=== PATIENT | female | born 2000 | race Caucasian/White ===

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

== ENCOUNTER 2021-07-06 12:59 | Emergency (ER) | payer BC ==
--- NOTE | 2021-07-06 13:22 | EDM.PDOC ---
ED HPI GENERAL MEDICAL PROBLEM - General Chief Complaint: Lower Extremity Injury/Pain Stated Complaint: RIGHT FOOT PAIN Time Seen by Provider: 07/06/21 13:22 Source of Information: Reports: Patient History Limitations: Reports: No Limitations - History of Present Illness INITIAL COMMENTS - FREE TEXT/NARRATIVE: Tosin, 21-year-old female, sustained injury to her right ankle last evening while attending a wedding dance. Individual stepped on her foot to which she was wearing high shoes causing her to twist and fall. Has had persistent pain that worsens with the attempt to drive today. Swelling remains stable from last night. States ankle history when in sports in high school. Denies any other concerns or injuries occurring. Onset Date: 07/05/21 Duration: Hour(s): Location: Reports: Lower Extremity, Right Quality: Reports: Ache, Sharp Severity: Moderate Improves with: Reports: None Worsens with: Reports: Movement Context: Reports: Activity, Trauma Right Foot Pain Score (Numeric/FACES): 5 - Related Data Allergies Allergy/AdvReac Type Severity Reaction Status Date / Time No Known Drug Allergies Allergy Cannot Verified 11/08/17 11:43 Remember Home Meds: Home Meds . 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 ED EXAM, GENERAL - Physical Exam Exam: See Below Free Text/Narrative:: Alert oriented in no distress. HEENT is negative discharge or deformity. PERRLA no icterus no injection. Thorax is clear with no audible wheezes no crackles noted. Cardiac is regular pulses present. Focused examination to the right lower extremity shows tenderness with swelling to the lateral malleolus. There is tenderness at the distal aspect of the malleoli slightly radiating. There is no pain to the forefoot or midfoot. Pain radiates upwards on the fibula on the distal shaft with no noted deformity, ecchymosis, nor point tenderness. Tattoo is noted across the metatarsal area with no erythema or evidence of any infection. Course - Vital Signs Last Recorded V/S: Last Vital Signs Temp 97.6 F 07/06/21 13:56 Pulse 91 07/06/21 13:56 Resp 18 07/06/21 13:56 BP 131/62 07/06/21 13:56 Pulse Ox 98 07/06/21 13:56 - Orders/Labs/Meds Orders: Active Orders 24 hr Category Date Time Status Ankle Min 3V Rt [CR] Stat Exams 07/06/21 13:24 Ordered DME for Discharge [COMM] Urgent Oth 07/06/21 14:01 Ordered Departure - Departure Time of Disposition: 14:04 Disposition: Home, Self-Care 01 Condition: Good Clinical Impression: Ankle pain, right, Sprain of ankle, deltoid, right - Discharge Information *PRESCRIPTION DRUG MONITORING PROGRAM REVIEWED*: Not Applicable *COPY OF PRESCRIPTION DRUG MONITORING REPORT IN PATIENT DOMINICK: Not Applicable Instructions: Ankle Sprain, [id number] Referrals: Flory Hurd MD [Primary Care Provider] - Forms: ED Department Discharge Additional Instructions: Use of the ankle support inside your boot as much as possible until strength returns and pain resolves. Ice and elevate is much as possible. Tylenol or Motrin may be used as needed for pain or inflammation. Avoid excessive use until improvement is noted. Follow-up with your provider as needed if not improving and/or if worsening. Sepsis Event Note (ED) - Focused Exam Vital Signs: Vital Signs Temp Pulse Resp BP Pulse Ox 07/06/21 13:56 97.6 F 91 18 131/62 98 - Problem List & Annotations (1) Ankle pain, right SNOMED Code(s): 113930754, 141197528 Code(s): M25.571 - PAIN IN RIGHT ANKLE AND JOINTS OF RIGHT FOOT Status: Acute Priority: High Current Visit: Yes Qualifiers: Chronicity: acute Qualified Code(s): M25.571 - Pain in right ankle and joints of right foot (2) Sprain of ankle, deltoid, right SNOMED Code(s): 46909440, [id number] Code(s): S93.421A - SPRAIN OF DELTOID LIGAMENT OF RIGHT ANKLE, INITIAL ENCOUNTER Status: Acute Current Visit: Yes Qualifiers: Encounter type: initial encounter Qualified Code(s): S93.421A - Sprain of deltoid ligament of right ankle, initial encounter - Problem List Review Problem List Initiated/Reviewed/Updated: Yes - My Orders Last 24 Hours: My Active Orders 07/06/21 13:24 Ankle Min 3V Rt [CR] Stat 07/06/21 14:01 DME for Discharge [COMM] Urgent - Assessment/Plan Last 24 Hours: My Active Orders 07/06/21 13:24 Ankle Min 3V Rt [CR] Stat 07/06/21 14:01 DME for Discharge [COMM] Urgent Plan: Use of the ankle support inside your boot as much as possible until strength returns and pain resolves. Ice and elevate is much as possible. Tylenol or Motrin may be used as needed for pain or inflammation. Avoid excessive use until improvement is noted. Follow-up with your provider as needed if not improving and/or if worsening.
[2021-07-06 13:59] VITALS: BP 131/62; PULSE 91
--- NOTE | 2021-07-06 14:10 | CR ---
[id number] RAD/RAD Ankle Right 3V Min EXAM: 3 VIEWS RIGHT ANKLE. INDICATION: ANKLE PAIN, FALL TWISTING MOTION. COMPARISON: None. DISCUSSION: No fracture, dislocation or other acute osseous abnormality. The ankle mortise is maintained. No significant soft tissue edema. Trace right ankle joint effusion. IMPRESSION: 1. No acute osseous abnormalities. Raymond Vega DO 07/06/21 [id number] Thank you for allowing us to participate in the care of your patient.
== END 2021-07-06 14:25 | disposition home or self-care (01) ==
LOC: KA.ED 12:59
DX: S93.421A Sprain of deltoid ligament of right ankle, initial encounter (principal); X50.1XXA Overexertion from prolonged static or awkward postures, initial encounter; Y93.41 Activity, dancing
CPT/HCPCS: 73610-RT; 99283; 99283-25